=== PATIENT | male | born 1955 | race Caucasian/White ===

== ENCOUNTER → 2019-04-08 | Outpatient (CLI) | payer OTHER, SELFPAY ==
--- NOTE | 2019-04-08 15:33 | MRI_ITS ---
STUDY: MRI BRAIN WITH AND WITHOUT CONTRAST REASON FOR EXAM: Male, 63 years old. Hearing loss and tinnitus in the left ear TECHNIQUE: Standardized multiplanar fat and water weighted pulse sequences were obtained. 20 IV Dotarem was administered for the contrast portion of the examination. COMPARISON: None. FINDINGS: Normal size of the ventricles and extra-axial spaces for the patient's age. Minor periventricular white matter ischemic changes without mass effect or restricted diffusion. Normal bilateral basal ganglia. Normal thalami. There is no extra-axial fluid accumulation. Normal flow voids within the major intracranial circulation suggesting patency by spin echo criteria. Normal venous enhancement. There is no enhancing intra-axial or extra-axial abnormality. Normal sella turcica, pituitary gland, infundibular stalk, optic chiasm and hypothalamus. Normal tectal plate and pineal gland. Normal midbrain, quincy and medulla. Normal cerebellum. Normal basal cisterns. Normal bilateral temporal bones. Normal bilateral internal auditory canals. No demonstrated orbital abnormality, within the constraints of a routine brain study. Mild mucosal thickening of the maxillary and ethmoid air cells bilaterally.. Normal calvarium and skull base. Normal visualized soft tissue structures. Normal visualized upper cervical spine. MRI/Brain W/WO Contrast IMPRESSION: Minor periventricular white matter ischemic changes without evidence for acute infarct. No enhancing lesions. Specifically no evidence for acoustic neuroma. Minor bilateral maxillary and ethmoid sinus disease Electronically Signed: Barrera Sandoval MD at 16:59 EDT , Service support ,
[2019-04-08 15:56] LABS: CREATININE FINGERSTICK 0.8 mg/dL (0.70-1.30); EGFR FINGERSTICK > 60.0000 mL/min (>60)
== END | disposition home or self-care (01) ==
PROVIDERS: Referring Provider Otolaryngology Otolaryngology/Facial Plastic Surgery; Visit Provider Otolaryngology Otolaryngology/Facial Plastic Surgery
DX: H93.12 Tinnitus, left ear (principal); H91.20 Sudden idiopathic hearing loss, unspecified ear
CPT/HCPCS: 70553; A9575